=== PATIENT | male | born 1960 | race Caucasian/White ===

== ENCOUNTER 2018-12-04 11:44 | Emergency (ER) | payer OTHER ==
[~2018-12-04] VITALS: Ht 185.4 cm; Wt 68.0 kg
[~2018-12-04 11:44] MED LIST: Augmentin 875-1 EACH PO
== END 2018-12-04 13:54 | disposition home or self-care (01) ==
LOC: ER 11:44
DX: S42.201A Unspecified fracture of upper end of right humerus, initial encounter for closed fracture (principal); J44.9 Chronic obstructive pulmonary disease, unspecified; F17.200 Nicotine dependence, unspecified, uncomplicated; W01.0XXA Fall on same level from slipping, tripping and stumbling without subsequent striking against object, initial encounter
CPT/HCPCS: 73060; 99283-25

== ENCOUNTER → 2023-07-09 | Outpatient (CLI) | payer OTHER | LOC: LAB 10:06 → LAB SHORT 10:06 | DX: M70.22 Olecranon bursitis, left elbow (principal) | CPT/HCPCS: 87070; 87075; 87205 ==